=== PATIENT | female | born 1985 | race Two or more races ===

== ENCOUNTER 2017-12-14 02:00 | Inpatient (IN) | END 2017-12-18 17:03 | disposition home or self-care (01) | DRG 766 ==

== ENCOUNTER → 2018-02-23 | Emergency (ER) | END | disposition home or self-care (01) ==

== ENCOUNTER 2018-11-01 12:19 | Emergency (ER) | payer MEDICAID, OTHER ==
[~2018-11-01] VITALS: Ht 157.5 cm; Wt 65.0 kg
[~2018-11-01 12:19] MED LIST: NAPR-985 PO; PREN-19 PO
[2018-11-01 13:02] VITALS: BP 123/75; PULSE 91; RESP 18; Ht 157.5 cm; Wt 65.0 kg
[2018-11-01] MEDS ORDERED: MED4DP PO (15:09)
[2018-11-01] MEDS ORDERED: FLUT9.9S NASAL (15:09)
[2018-11-01] MEDS ORDERED: PSEU-79 PO (15:09)
[2018-11-01] MEDS ORDERED: LEVO750T25 PO (15:09)
--- NOTE | 2018-11-01 15:27 | ERD ---
ER Documentation Chief Complaint Chief Complaint RUNNY NOSE X 2 DAYS HPI 33-year-old female presenting with runny nose times 2 days. Patient states that she is so congested she is unable to sleep. She states he has had some symptoms persistent over the last month however worsened over the last 2 days. Denies any fevers. Has taken NyQuil. No other medical problems. NKDA. Surgical history . Social history denies ROS All systems reviewed and are negative except as per history of present illness. Medications Home Meds Active Scripts Fluticasone Propionate (Flonase Allergy Relief) 9.9 Ml [place].susp, 1 SPRAY NASAL DAILY, #1 BOTTLE TO EACH NOSTRIL Prov:SERAFIN PRYOR PA-C 11/01/18 Levofloxacin* (Levaquin*) 750 Mg Tablet, 750 MG PO DAILY for 5 Days, TAB Prov:SERAFIN PRYOR PA-C 11/01/18 Methylprednisolone* (Medrol* DOSE PACK) 4 Mg/Dose-Pack Tab.ds.pk, 4 MG PO . DIRECTED, #1 PACKET Prov:SERAFIN PRYOR PA-C 11/01/18 Pseudoephedrine Hcl* (Suphedrin*) 30 Mg Tablet, 30 MG PO Q6 PRN for CONGESTION, #30 TAB Prov:SERAFIN PRYOR PA-C 11/01/18 Naproxen* (Naprosyn*) 500 Mg Tablet, 500 MG PO BID PRN for PAIN AND/OR INFLAMMATION, #30 TAB Prov:NIRU LANG PA-C 02/23/18 Reported Medications Vit #76/Iron,Carb/FA (Prenatabs Rx Tablet) 1 Each Tablet, 1 EACH PO DAILY, TAB 12/14/17 Allergies Allergies: Coded Allergies: No Known Allergy (Unverified , 11/01/18) PMhx/Soc History of Surgery: Yes (CSECTION X3) Anesthesia Reaction: No Hx Alcohol Use: No Hx Substance Use: No Hx Tobacco Use: No Smoking Status: Never smoker FmHx Family History: No diabetes, No coronary disease, No other Physical Exam Vitals Vital Signs Date Temp Pulse Resp B/P (MAP) Pulse Ox O2 O2 Flow FiO2 Time Delivery Rate 11/01/18 98.0 86 18 119/70 99 Room Air 15:16 (86) 11/01/18 98.2 91 18 123/75 99 13:02 (91) Physical Exam GENERAL: The patient is well-appearing, well-nourished, in no acute distress HEENT: Atraumatic. Conjunctivae are pink. Pupils equal, round, and reactive to light. There is no scleral icterus. Tympanic membranes clear bilaterally. Oropharynx clear. Sinus congestion NECK: C-spine is soft and supple. There is no meningismus. There is no cervical lymphadenopathy. CHEST: Clear to auscultation bilaterally. There are no rales, wheezes or rho nchi. HEART: Regular rate and rhythm. No murmurs, clicks, rubs or gallops. Procedures/MDM MDM: 33-year-old female presents with sinus congestion. I will treat with supportive medications as well as antibiotics. I have low suspicion for meningitis or sepsis. Patient is discharged with stricter precautions and told to follow-up with primary care within 1-2 days for close evaluation. All questions answered at discharge Departure Diagnosis: Primary Impression: Sinusitis Condition: Stable Patient Instructions: Sinusitis, Abx Tx Referrals: [facility] YOU HAVE RECEIVED A MEDICAL SCREENING EXAM AND THE RESULTS INDICATE THAT YOU DO NOT HAVE A CONDITION THAT REQUIRES URGENT TREATMENT IN THE EMERGENCY DEPARTMENT. FURTHER EVALUATION AND TREATMENT OF YOUR CONDITION CAN WAIT UNTIL YOU ARE SEEN IN YOUR DOCTORS OFFICE WITHIN THE NEXT 1-2 DAYS. IT IS YOUR RESPONSIBILITY TO MAKE AN APPOINTMENT FOR FOLOW-UP CARE. IF YOU HAVE A PRIMARY DOCTOR --you should call your primary doctor and schedule an appointment IF YOU DO NOT HAVE A PRIMARY DOCTOR YOU CAN CALL OUR PHYSICIAN REFERRAL HOTLINE AT IF YOU CAN NOT AFFORD TO SEE A PHYSICIAN YOU CAN CHOSE FROM THE FOLLOWING [facility] [id number] [facility] [address] [facility] [facility] [address] [facility] [address] [facility] [address]. [facility]. [address] Additional Instructions: FOLLOW UP WITH YOUR PRIMARY CARE PHYSICIAN TOMORROW.Return to this facility if you are not improving as expected. SERAFIN PRYOR PA-C Nov 01, 2018 15:27
== END 2018-11-01 15:15 | disposition home or self-care (01) ==
LOC: FTE 12:19
DX: J32.9 Chronic sinusitis, unspecified (principal)
CPT/HCPCS: 99283